=== PATIENT | female | born 1985 | race Caucasian/White ===

== ENCOUNTER 2016-09-17 01:42 | Emergency (ER) | payer SELFPAY ==
[~2016-09-17] VITALS: Ht 157.5 cm; Wt 52.2 kg
[~2016-09-17 01:42] MED LIST: FERR-31 PO; PRENAT PO
[2016-09-17 01:46] VITALS: Ht 157.5 cm; Wt 52.2 kg
[2016-09-17] MEDS ORDERED: SOD CHLORIDE 0.9% 1,000 ML IV STA (03:22)
[2016-09-17 03:37] LABS: ADD UMIC NO; URINE BILIRUBIN (Dip) NEGATIVE (NEGATIVE); URINE BLOOD (Dip) NEGATIVE (NEGATIVE); URINE COLOR LT. YELLOW (YELLOW); URINE GLUCOSE (Dip) NEGATIVE (NEGATIVE); URINE KETONES (Dip) NEGATIVE (NEGATIVE); URINE LEUKOCYTE ESTERASE (Dip) NEGATIVE (NEGATIVE); URINE NITRITE (Dip) NEGATIVE (NEGATIVE); URINE TOTAL PROTEIN (Dip) NEGATIVE (NEGATIVE); URINE UROBILINOGEN (Dip) 0.2 E.U./dL (0.1-1.0)
[2016-09-17 03:50] LABS: ADD SCAN DIFF NO
[2016-09-17 03:51] LABS: BASOPHILS % 0.3 % (0.0-2.0); EOSINOPHILS # 0.1 10^3/ul (0.0-0.5); HEMATOCRIT 35.7 % (37.0-47.0); HEMOGLOBIN 11.6 g/dl (12.0-16.0); LYMPHOCYTES # 1.6 10^3/ul (0.8-2.9); LYMPHOCYTES % 23.3 % (15.0-51.0); MEAN CORPUSCULAR HGB CONC 32.5 g/dl (32.0-37.0); MEAN CORPUSCULAR VOLUME 86.2 fl (82.0-101.0); MEAN PLATELET VOLUME 10.8 fl (7.4-10.4); MONOCYTE # 0.3 10^3/ul (0.3-0.9); MONOCYTES % 4.2 % (0.0-11.0); NEUTROPHIL # 4.9 10^3/ul (1.6-7.5); NEUTROPHILS % 70.9 % (39.0-77.0); PLATELET COUNT 271 10^3/UL (140-415); RED BLOOD COUNT 4.14 10^6/ul (4.20-5.40); RED CELL DISTRIBUTION WIDTH 13.2 % (11.5-14.5); WHITE BLOOD COUNT 6.9 10^3/ul (4.8-10.8)
[2016-09-17 04:16] LABS: POTASSIUM 3.8 mmol/L (3.5-5.1)
[2016-09-17 04:18] LABS: BILIRUBIN,INDIRECT 0.1 mg/dl (0-1.1); BILIRUBIN,TOTAL 0.1 mg/dl (0.2-1.3); CREATININE 0.53 mg/dl (0.44-1.00)
--- NOTE | 2016-09-17 04:18 | ERD ---
ER Documentation Chief Complaint Date/Time DATE: 09/17/16 TIME: 04:16 Chief Complaint ABP PAIN OFF AND ON X1 WEEK +VOMITING AND DIARRHEA HPI This is a 31 female abdominal pain off and on for 1 week patient had vomiting and diarrhea as well. Abdominal pain is crampy, diffuse with no exacerbating limiting factors. Denies any fevers or chills. Denies any other current issues. ROS All systems reviewed and are negative except as per history of present illness. Medications Home Meds Reported Medications Ferrous Sulfate (Iron Supplement) 1 Tab Tablet, 1 TAB PO DAILY, TAB 05/16/15 Multivit/Min/Fol Ac/Iron/Pren* ( S*) 1 Tab Tab, 1 TAB PO DAILY, TAB 05/16/15 Allergies Allergies: Coded Allergies: No Known Drug Allergies (Verified Allergy, Unknown, 09/17/16) PMhx/Soc History of Surgery: Yes (ORTHO, X1) Anesthesia Reaction: No Hx Neurological Disorder: No Hx Respiratory Disorders: No Hx Cardiac Disorders: No Hx Psychiatric Problems: No Hx Miscellaneous Medical Probl: Yes (GESTIONAL DIABETES) Hx Alcohol Use: No Hx Substance Use: No Hx Tobacco Use: No Smoking Status: Never smoker Physical Exam Vitals Vital Signs Date Time Temp Pulse Resp B/P Pulse Ox O2 Delivery O2 Flow Rate FiO2 09/17/16 01:46 98.4 67 20 114/72 98 Physical Exam Const: [] Head: Atraumatic Eyes: Normal Conjunctiva ENT: Normal External Ears, Nose and Mouth. Neck: Full range of motion..~ No meningismus. Resp: Clear to auscultation bilaterally Cardio: Regular rate and rhythm, no murmurs Abd: Soft, non tender, non distended. Normal bowel sounds Skin: No petechiae or rashes Back: No midline or flank tenderness Ext: No cyanosis, or edema Neur: Awake and alert Psych: Normal Mood and Affect Result Diagram: 09/17/16 0330 Results 24 hrs Laboratory Tests Test 09/17/16 03:05 09/17/16 03:30 Urine Color LT. YELLOW Urine Clarity CLEAR Urine pH 6.0 Urine Specific [place] >=1.030 Urine Ketones NEGATIVE Urine Nitrite NEGATIVE Urine Bilirubin NEGATIVE Urine Urobilinogen 0.2 E.U./dL Urine Leukocyte Esterase NEGATIVE Urine Hemoglobin NEGATIVE Urine Glucose NEGATIVE% Urine Total Protein NEGATIVE White Blood Count 6.910^3/ul Red Blood Count 4.1410^6/ul Hemoglobin 11.6g/dl Hematocrit 35.7% Mean Corpuscular Volume 86.2fl Mean Corpuscular Hemoglobin 28.0pg Mean Corpuscular Hemoglobin Concent 32.5g/dl Red Cell Distribution Width 13.2% Platelet Count 67467^3/UL Mean Platelet Volume 10.8fl Neutrophils % 70.9% Lymphocytes % 23.3% Monocytes % 4.2% Eosinophils % 1.0% Basophils % 0.3% Nucleated Red Blood Cells % 0.0/100WBC Neutrophils # 4.910^3/ul Lymphocytes # 1.610^3/ul Monocytes # 0.310^3/ul Eosinophils # 0.110^3/ul Basophils # 0.010^3/ul Nucleated Red Blood Cells # 0.010^3/ul Current Medications Medications (Trade) Dose Ordered Sig/Nery Route PRN Reason Start Time Stop Time Status Last Admin Dose Admin Sodium Chloride (NS) 1,000 ml @ 1,000 mls/hr Q1H STAT IV 09/17/16 03:22 09/17/16 04:21 09/17/16 03:35 Procedures/MDM Medical decision making: This very pleasant 30 female with abdominal pain diarrhea. This likely bacterial given the length and severity of symptoms. At this point she is clinically stable for outpatient management. Should be discharged home with ciprofloxacin and Flagyl. Follow-up in 8 hours for serial abdominal exams. Return sooner for worsening symptoms. Departure Diagnosis: Primary Impression: Abdominal pain Abdominal location: generalized Qualified Code: R10.84 - Generalized abdominal pain LINDA PEREZ September 17, 2016 04:18
[2016-09-17 04:19] LABS: ALBUMIN/GLOBULIN RATIO 1.29; CALCIUM 9.1 mg/dl (8.4-10.2); TOTAL PROTEIN 7.1 g/dl (6.1-8.1)
[2016-09-17] MEDS ORDERED: CIPR500T4 PO (04:22)
[2016-09-17] MEDS ORDERED: TRAM50TA2 PO (04:22)
[2016-09-17] MEDS ORDERED: ONDA4TAB14 PO (04:22)
[2016-09-17] MEDS ORDERED: METR500T PO (04:22)
[2016-09-17 04:47] VITALS: BP 101/67; PULSE 69; RESP 12; TEMP 98.6
== END 2016-09-17 07:02 | disposition home or self-care (01) ==
LOC: E/R 01:42
DX: R10.84 Generalized abdominal pain (principal); R11.10 Vomiting, unspecified
CPT/HCPCS: 36415; 80053; 81003; 83690; 85025; 99284; J7030

== ENCOUNTER 2016-11-22 12:23 | Emergency (ER) | payer MEDICAID ==
[~2016-11-22] VITALS: Wt 69.0 kg
[~2016-11-22 12:23] MED LIST changes: +CIPR500T4 PO; +METR500T PO; +ONDA4TAB14 PO; +TRAM50TA2 PO
[2016-11-22] MEDS ORDERED: ONDANSETRON (ODT) 4 MG TAB ODT STA (12:42)
[2016-11-22] MEDS ORDERED: IBUPROFEN 600 MG TAB PO ONE (13:00)
[2016-11-22 13:10] LABS: BASOPHILS % 0.3 % (0.0-2.0); EOSINOPHILS # 0.1 10^3/ul (0.0-0.5); EOSINOPHILS % 0.8 % (0.0-7.0); HEMATOCRIT 38.2 % (37.0-47.0); HEMOGLOBIN 12.8 g/dl (12.0-16.0); LYMPHOCYTES # 1.5 10^3/ul (0.8-2.9); LYMPHOCYTES % 19.6 % (15.0-51.0); MEAN CORPUSCULAR HEMOGLOBIN 27.9 pg (29.0-33.0); MEAN CORPUSCULAR HGB CONC 33.5 g/dl (32.0-37.0); MEAN CORPUSCULAR VOLUME 83.2 fl (82.0-101.0); MEAN PLATELET VOLUME 10.2 fl (7.4-10.4); MONOCYTE # 0.3 10^3/ul (0.3-0.9); MONOCYTES % 4.2 % (0.0-11.0); NEUTROPHIL # 5.5 10^3/ul (1.6-7.5); NEUTROPHILS % 74.8 % (39.0-77.0); PLATELET COUNT 249 10^3/UL (140-415); RED BLOOD COUNT 4.59 10^6/ul (4.20-5.40); WHITE BLOOD COUNT 7.4 10^3/ul (4.8-10.8)
[2016-11-22 13:29] LABS: ALBUMIN 4.8 g/dl (3.3-4.9); ALBUMIN/GLOBULIN RATIO 1.45; BILIRUBIN,INDIRECT 0.3 mg/dl (0-1.1); BILIRUBIN,TOTAL 0.3 mg/dl (0.2-1.3); CALCIUM 9.3 mg/dl (8.4-10.2); CREATININE 0.55 mg/dl (0.44-1.00); POTASSIUM 3.9 mmol/L (3.5-5.1); TOTAL PROTEIN 8.1 g/dl (6.1-8.1)
[2016-11-22 13:32] LABS: ADD UMIC YES; UR ASCORBIC ACID NEGATIVE (NEGATIVE); UR BILIRUBIN (Dip) NEGATIVE (NEGATIVE); UR BLOOD (Dip) 3+ mg/dL (NEGATIVE); UR CLARITY SLIGHTLY CLOUDY (CLEAR); UR COLOR YELLOW (YELLOW); UR GLUCOSE (Dip) NEGATIVE (NEGATIVE); UR KETONES (Dip) NEGATIVE (NEGATIVE); UR LEUKOCYTE ESTERASE (Dip) NEGATIVE Leu/ul (NEGATIVE); UR MUCUS FEW /HPF (NONE SEEN); UR NITRITE (Dip) NEGATIVE (NEGATIVE); UR RBC > 182 /HPF (0-5); UR SPECIFIC GRAVITY (Dip) 1.018 (1.003-1.030); UR SQUAMOUS EPITHELIAL CELL FEW /HPF (FEW); UR TOTAL PROTEIN (Dip) NEGATIVE (NEGATIVE); UR UROBILINOGEN (Dip) NEGATIVE (NEGATIVE)
--- NOTE | 2016-11-22 14:58 | RADRPT ---
PROCEDURE: CT Abdomen and Pelvis without contrast. CLINICAL INDICATION: Abdominal pain. Nausea and vomiting. TECHNIQUE: CT scan of the abdomen and pelvis without contrast was performed on a multi-slice CT [facility] without intravenous contrast. Coronal and sagittal reformatted images were obtained from the axial source images. Images were reviewed on a high-resolution PACS workstation. One or more of the following does reduction techniques were used: Automated exposure control; adjustment of the mA an d/or kV according to patient size; use of the aorta of reconstruction technique. The total exam CTD I equals 4.58 mGy and the total exam DLP equals 243.9 mGy-cm. COMPARISON: None available. FINDINGS: There is a calcified granuloma in the right lower lobe. The lung bases are otherwise clear. Heart size is normal, and there is no evidence of pericardial thickening or effusion. The liver, spleen, and pancreas are normal given limitations of a noncontrast CT examination. The g allbladder is normal. The adrenal glands are normal. The kidneys without renal calculus or hydronephrosis. The aorta is of normal caliber. There is no retroperitoneal lymph node enlargment. There is no evidence of large or small bowel obstruction. A normal appendix with small appendicolit hs is noted.. No free fluid or fluid collections are identified. No inflammatory changes are seen . There is a small periumbilical hernia which contains only fat. The uterus is present and somewhat prominent No enlarged pelvic sidewall lymph nodes are seen. The bladder is within normal limits. No free fluid is identified. The inguinal regions are unremarkabl e. There is srini sacralization of L5 on the right. The bones are otherwise intact.. IMPRESSION: 1. No CT evidence of acute intra-abdominal or pelvic process. 2. Old granulomatous disease in the right lung. 3. Small periumbilical hernia containing only fat. 4. 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 RPTAT: KK .Duane Thomson MD, MD Date Time Electronically viewed and signed by .Duane Thomson MD, MD on 11/22/2016 14:58 .B/
[2016-11-22] MEDS ORDERED: IBUP-1542 PO (15:10)
[2016-11-22] MEDS ORDERED: ONDA4TAB14 PO (15:10)
[2016-11-22] MEDS ORDERED: HYDR-906 PO (15:10)
--- NOTE | 2016-11-22 17:35 | ERD ---
ER Documentation Chief Complaint Date/Time DATE: 11/22/16 TIME: 17:32 Chief Complaint ABD PAIN X 1 DAY HPI 30-year-old female complains of lower abdominal pain for 1 day with associated nausea vomiting. She describes it as achy pain, that is from the mid to lower abdomen. She has had this pain 2 other times in the past and states that she has not had imaging, and has had blood work and it was normal. She denies fevers or chills, diarrhea. She denies dysuria, urgency or frequency. ROS All systems reviewed and are negative except as per history of present illness. Medications Home Meds Active Scripts Ondansetron (Ondansetron Odt) 4 Mg Tab.rapdis, 4 MG PO Q6H Y for NAUSEA AND/OR VOMITING, #10 TAB Prov:KEN TOSCANO PA-C 11/22/16 Ibuprofen* (Motrin*) 600 Mg Tab, 600 MG PO Q6, #30 TAB Prov:KEN TOSCANO PA-C 11/22/16 Hydrocodone/Acetaminophen (Petty 5-325 Tablet) 1 Each Tablet, 1 TAB PO Q6H Y for PAIN, #7 TAB Prov:KEN TOSCANO PA-C 11/22/16 Ondansetron (Ondansetron Odt) 4 Mg Tab.rapdis, 4 MG PO Q6H Y for NAUSEA AND/OR VOMITING, #10 TAB Prov:LINDA PEREZ. 09/17/16 Tramadol HCl (Tramadol HCl) 50 Mg Tablet, 50 MG PO Q4 Y for PAIN, #20 TAB Prov:LINDA PEREZ 09/17/16 Metronidazole* (Flagyl*) 500 Mg Tablet, 500 MG PO TID for 7 Days, TAB Prov:LINDA PEREZ 09/17/16 Ciprofloxacin Hcl* (Ciprofloxacin Hcl*) 500 Mg Tablet, 500 MG PO BID for 7 Days , TAB Prov:LINDA PEREZ 09/17/16 Reported Medications Ferrous Sulfate (Iron Supplement) 1 Tab Tablet, 1 TAB PO DAILY, TAB 05/16/15 Multivit/Min/Fol Ac/Iron/Pren* ( S*) 1 Tab Tab, 1 TAB PO DAILY, TAB 05/16/15 Allergies Allergies: Coded Allergies: No Known Drug Allergies (Verified Allergy, Unknown, 09/17/16) PMhx/Soc History of Surgery: Yes (ORTHO, X1) Anesthesia Reaction: No Hx Neurological Disorder: No Hx Respiratory Disorders: No Hx Cardiac Disorders: No Hx Psychiatric Problems: No Hx Miscellaneous Medical Probl: Yes (GESTIONAL DIABETES) Hx Alcohol Use: No Hx Substance Use: No Hx Tobacco Use: No Smoking Status: Never smoker Physical Exam Vitals Vital Signs Date Time Temp Pulse Resp B/P Pulse Ox O2 Delivery O2 Flow Rate FiO2 11/22/16 12:28 98.0 71 18 112/76 99 Physical Exam General: Well-developed, well-nourished. The patient appears in no acute distress. HEENT: Head is normocephalic, atraumatic. No scleral icterus. Neck: Supple. Nontender. Lungs: Clear to auscultation. Normal air movement. Heart: Regular rate and rhythm. S1 and S2 are normal. No murmurs, gallops, or rubs. Abdomen: Soft, mid abdomen is tender nondistended. Bowel sounds are normoactive. No masses, no rebound pain, no tenderness to McBurney's point. Extremities: No clubbing or cyanosis. Normal pulses. Moving extremities x 4. No weakness. Neurologic: Alert and oriented 3. No focal deficits. Skin: Normal turgor. No rash or lesions. Result Diagram: 11/22/16 1300 11/22/16 1300 Results 24 hrs Laboratory Tests Test 11/22/16 13:00 White Blood Count 7.410^3/ul Red Blood Count 4.5910^6/ul Hemoglobin 12.8g/dl Hematocrit 38.2% Mean Corpuscular Volume 83.2fl Mean Corpuscular Hemoglobin 27.9pg Mean Corpuscular Hemoglobin Concent 33.5g/dl Red Cell Distribution Width 15.0% Platelet Count 77498^3/UL Mean Platelet Volume 10.2fl Neutrophils % 74.8% Lymphocytes % 19.6% Monocytes % 4.2% Eosinophils % 0.8% Basophils % 0.3% Nucleated Red Blood Cells % 0.0/100WBC Neutrophils # 5.510^3/ul Lymphocytes # 1.510^3/ul Monocytes # 0.310^3/ul Eosinophils # 0.110^3/ul Basophils # 0.010^3/ul Nucleated Red Blood Cells # 0.010^3/ul Urine Color YELLOW Urine Clarity SLIGHTLY CLOUDY Urine pH 6.0 Urine Specific [place] 1.018 Urine Ketones NEGATIVEmg/dL Urine Nitrite NEGATIVEmg/dL Urine Bilirubin NEGATIVEmg/dL Urine Urobilinogen NEGATIVEmg/dL Urine Leukocyte Esterase NEGATIVELeu/ul Urine Microscopic RBC > 182/HPF Urine Microscopic WBC 25/HPF Urine Squamous Epithelial Cells FEW/HPF Urine Mucus FEW/HPF Urine Hemoglobin 3+mg/dL Urine Glucose NEGATIVEmg/dL Urine Total Protein NEGATIVEmg/dl Sodium Level 141mmol/L Potassium Level 3.9mmol/L Chloride Level 101mmol/L Carbon Dioxide Level 25mmol/L Anion Gap 19 Blood Urea Nitrogen 9mg/dl Creatinine 0.55mg/dl Glucose Level 105mg/dl Calcium Level 9.3mg/dl Total Bilirubin 0.3mg/dl Direct Bilirubin 0.00mg/dl Indirect Bilirubin 0.3mg/dl Aspartate Amino Transf (AST/SGOT) 19IU/L Alanine Aminotransferase (ALT/SGPT) 28IU/L Alkaline Phosphatase 53IU/L Total Protein 8.1g/dl Albumin 4.8g/dl Globulin 3.30g/dl Albumin/Globulin Ratio 1.45 Lipase 94U/L Current Medications Medications (Trade) Dose Ordered Sig/Nery Route PRN Reason Start Time Stop Time Status Last Admin Dose Admin Ibuprofen (Motrin) 600 mg ONCE ONCE PO 11/22/16 13:00 11/22/16 13:01 DC 11/22/16 13:21 Ondansetron HCl (Zofran Odt) 4 mg ONCE STAT ODT 11/22/16 12:42 11/22/16 12:44 DC 11/22/16 13:21 Procedures/MDM 30-year-old female comes in with mid abdominal pain. Patient states that she she has had this twice in the past. She had this time states that the pain has occurred on 2 other occasions and it resolved. Her labs are normal at this time and she was offered imaging at this time CT was done and shows no evidence of an acute intra-abdominal process. Labs do show there is blood in the urine however the patient is currently on her menstrual cycle, and she does not have any urinary complaints indicate UTI. She was given ibuprofen, and Zofran is feeling much better at this time. She is to recheck her abdominal pain 8-12 hours or sooner for any worsening symptoms. Departure Diagnosis: Primary Impression: Abdominal pain Condition: Good Patient Instructions: Abdominal Pain Additional Instructions: Llame al doctor MAANA y naty bernice PHUONG PARA DENTRO DE 1-2 ERNST.Dgale a la secretaria que nosotros le instruimos hacer esta phuong.Avise o llame si coronel condicin se empeora antes de la phuong. Regresa aqui si peor o no mejor. KEN TOSCANO PA-C Nov 22, 2016 17:35
== END 2016-11-22 15:17 | disposition home or self-care (01) ==
LOC: FTE 12:23
DX: R10.30 Lower abdominal pain, unspecified (principal); R11.2 Nausea with vomiting, unspecified
CPT/HCPCS: 36415; 74176; 80053; 81001; 83690; 85025; Z7502; Z7610